=== PATIENT | male | born 1995 | race African-American/Black ===

== ENCOUNTER 2022-07-29 17:53 | Emergency (ER) | payer OTHER ==
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
[2022-07-29] MEDS ORDERED: HYDROCODONE/APAP 7.5/325 MG TAB ONE (18:24)
[2022-07-29] MEDS ORDERED: BUPIVACAINE 0.5% PF 10 ML VIAL ONE (18:25)
[2022-07-29] MEDS ORDERED: LIDOCAINE 1% W/EPI 1:100,000 MDV 50 ML VIAL ONE (18:25)
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
[2022-07-29] MEDS ORDERED: AMOX/K CLAV 875 MG TAB ONE (20:41)
== END 2022-07-29 20:59 | disposition home or self-care (01) ==
LOC: ER 17:53
PROC: 0JQ10ZZ Repair Face Subcutaneous Tissue and Fascia, Open Approach (ICD-10-PCS; principal; 2022-07-29)
DX: S02.2XXA Fracture of nasal bones, initial encounter for closed fracture (principal); S02.32XA Fracture of orbital floor, left side, initial encounter for closed fracture; S02.19XA Other fracture of base of skull, initial encounter for closed fracture; S01.81XA Laceration without foreign body of other part of head, initial encounter
CPT/HCPCS: 70450; 70486; 71045; 72125; 76377; 99285